=== PATIENT | female | born 1930 | race Caucasian/White ===

== ENCOUNTER → 2017-06-23 | Outpatient (CLI) | payer OTHER ==
--- NOTE | 2017-06-24 09:40 | RSPPFT ---
DATE OF PROCEDURE: 06/23/17 COMMENTS: VOLUMES DYNAMIC: FVC and FEV1 normal. STATIC: FRC mildly reduced; RV/TLC normal. FLOWS: FEV1% and FEF 25-75 super normal. DIFFUSION: Normal. FLOW VOLUME LOOP: Normal configuration. IMPRESSION: Mild reduction in FRC otherwise normal lung volumes and no significant airways obstruction. Diffusion capacity is normal. There is no improvement post-bronchodilator.
== END ==
LOC: PHRSP 10:15
PROVIDERS: ATTEND Internal Medicine
DX: R06.02 Shortness of breath (principal); J44.9 Chronic obstructive pulmonary disease, unspecified
CPT/HCPCS: 94060; 94618; 94726; 94729